=== PATIENT | male | born 1975 | race Caucasian/White ===

== ENCOUNTER 2018-01-04 18:40 | Emergency (ER) | payer OTHER ==
[2018-01-04 18:47] VITALS: BP 121/75
--- NOTE | 2018-01-04 19:19 | UC ---
Knee Pain HPI - HPI Summary HPI Summary: The patient is a 42-year-old male that presents here for evaluation of worsening left knee pain and swelling. He had a serious injury to his left knee in the past. He states that he had a patellar fracture and repair of a torn ACL. He states he has had chronic problems with his left knee. He states that he has had x-rays in the past that showed severe arthritis. He states that he was told by an orthopedist that at some point he would need a knee replacement. Today he was unable to work due to the discomfort. He states that it feels like his left knee will buckle at times and he is a large knee effusion which he states has not been an issue for him in the past. - History of Current Complaint Chief Complaint: UCLowerExtremity Stated Complaint: KNEE PAIN Time Seen by Provider: 01/04/18 19:09 Hx Obtained From: Patient Onset/Duration: Gradual Onset, Lasting Days Severity Initially: Mild Severity Currently: Severe Pain Intensity: 8 Character: Dull, Aching Aggravating Factor(s): Movement, Weight Bearing, Prolonged Standing Alleviating Factor(s): Rest Associated Signs And Symptoms: Positive: Swelling - Allergies/Home Medications Allergies/Adverse Reactions: Allergies Allergy/AdvReac Type Severity Reaction Status Date / Time No Known Allergies Allergy Verified 01/04/18 18:47 PMH/Surg Hx/FS Hx/Imm Hx Previously Healthy: Yes - Surgical History Surgical History: Yes Surgery Procedure, Year, and Place: BACK SURGERY- BENIGN TUMOR REMOVED-[facility] – [place]. LEFT KNEE SURGERY. SURGERY FOR HEAD INJURY-1987. FINGER SURGERY - Social History Alcohol Use: None Substance Use Type: None Smoking Status (MU): Current Every Day Smoker Type: Cigars Amount Used/How Often: 2-3 CIGARS/DAY Review of Systems Constitutional: Negative Skin: Negative Eyes: Negative ENT: Negative Respiratory: Negative Cardiovascular: Negative Gastrointestinal: Negative Genitourinary: Negative Motor: Negative Neurovascular: Negative Musculoskeletal: Arthralgia Neurological: Negative Psychological: Negative Is Patient Immunocompromised?: No All Other Systems Reviewed And Are Negative: Yes Physical Exam Triage Information Reviewed: Yes Appearance: Well-Appearing, No Pain Distress, Well-Nourished Vital Signs: Initial Vital Signs Temp 98.6 F 01/04/18 18:43 Pulse 56 01/04/18 18:43 Resp 16 01/04/18 18:43 BP 121/75 01/04/18 18:43 Pulse Ox 99 01/04/18 18:43 Vital Signs Reviewed: Yes Eyes: Positive: Conjunctiva Clear ENT: Positive: Hearing grossly normal. Negative: Nasal congestion, Nasal drainage, Trismus, Muffled voice, Dental tenderness, Sinus tenderness Neck: Positive: Supple, Nontender, No Lymphadenopathy Respiratory: Positive: Lungs clear, Normal breath sounds, No respiratory distress Cardiovascular: Positive: RRR, No Murmur Musculoskeletal: Positive: Edema @ - ++++ effusion left knee, tender medail joint line, Other: - antalgic gait, no overling warmth or redness left knee Neurological: Positive: Alert Skin Exam: Normal Diagnostics - Radiology No standard instances Xray Interpretation: Positive (See Comments) - DJD, effusion,? loose body Radiology Interpretation Completed By: ED Physician Knee Pain Course/Dx - Differential Dx/Diagnosis Provider Diagnoses: Swollen left knee. DJD. ? loose body Discharge - Sign-Out/Discharge Documenting (check all that apply): Patient Departure All imaging exams completed and their final reports reviewed: No - Discharge Plan Condition: Stable Disposition: HOME Patient Education Materials: Swollen Knee Joint (ED), Knee Immobilizer (ED) Forms: *Work Release Referrals: Earl Rico MD [Medical Doctor] - As Soon As Possible Giovanni Chisholm MD [Primary Care Provider] - Additional Instructions: I suggest you see an orthopedist You have severe arthritis You have a large effusion ("water on the knee") you may have a loose body (something floating in joint irritating it ice twice daily rest elevate aleve - Billing Disposition and Condition Condition: STABLE Disposition: Home
--- NOTE | 2018-01-05 07:52 | RAD ---
Indication: Left knee pain. 4 views of left knee are reviewed. There is joint space narrowing in the medial and lateral compartment as well as the patellofemoral joint with deformity of the patella from prior injury. No recent fracture is noted. No joint effusion is noted. Multiple loose bodies are likely joint space. IMPRESSION: Marked degenerative changes with heterotopic ossification. No acute injury or fracture is noted. R0
--- NOTE | 2018-01-05 08:10 | UC ---
- EKG/XRAY/CT XRAY: knee Xray Comments: wet read correct Discharge - Sign-Out/Discharge Documenting (check all that apply): Post-Discharge Follow Up All imaging exams completed and their final reports reviewed: Yes - Discharge Plan Condition: Stable Disposition: HOME Patient Education Materials: Swollen Knee Joint (ED), Knee Immobilizer (ED) Forms: *Work Release Referrals: Earl Rico MD [Medical Doctor] - As Soon As Possible Giovanni Chisholm MD [Primary Care Provider] - Additional Instructions: I suggest you see an orthopedist You have severe arthritis You have a large effusion ("water on the knee") you may have a loose body (something floating in joint irritating it ice twice daily rest elevate aleve - Billing Disposition and Condition Condition: STABLE Disposition: Home
== END 2018-01-04 19:59 | disposition home or self-care (01) ==
LOC: UCEAST 18:40
DX: M25.462 Effusion, left knee (principal); M17.12 Unilateral primary osteoarthritis, left knee; F17.290 Nicotine dependence, other tobacco product, uncomplicated
CPT/HCPCS: 99212; G0463

== ENCOUNTER 2022-05-31 10:01 | Observation (INO) ==
[~2022-05-31 10:01] MED LIST: Buffered Lidocaine 1% SYRIN 1 ml INTRADERM ONE; Lactated Ringers 1000 ml BAG 1,000 ML IV SCH
[2022-05-31] MEDS ORDERED: ceFAZolin 2 GM PREMIX 2 GM/50 ML BAG ONE (10:26)
[2022-05-31] MEDS ORDERED: ROPIVACAINE 5 MG/ML 30 ML BTL (0.5%) ONE ×2 (11:51→12:14)
[2022-05-31] MEDS ORDERED: Ropivacaine 5 MG/ML 20 ML VIAL 0.5% (100 MG) ONE (12:04)
[2022-05-31] MEDS ORDERED: Midazolam 2 mg/2 ml VIAL 1 mg/ml 2 ml VIAL (2 mg) ONE ×2 (12:14→12:47)
[2022-05-31] MEDS ORDERED: fentaNYL 100 mcg/2 ml 50 MCG/ML VIAL ONE ×2 (12:14→16:43)
[2022-05-31] MEDS ORDERED: fentaNYL 100 mcg/2 ml 50 MCG/ML VIAL IV PRN (13:38)
[2022-05-31] MEDS ORDERED: Naloxone 0.4 mg VIAL 0.4 mg/ml 1 ml VIAL IV PRN (13:38)
[2022-05-31] MEDS ORDERED: Ondansetron 4 mg VIAL 2 MG/ML 2 ml VIAL IV PRN ×2 (13:38→13:57)
[2022-05-31] MEDS ORDERED: Morphine 2 MG/ML SYRINGE IV PRN (13:57)
[2022-05-31] MEDS ORDERED: Lactulose 30 ml UDC PO PRN (13:57)
[2022-05-31] MEDS ORDERED: Ondansetron ODT 4 mg TAB 4 MG TAB PO PRN (13:57)
[2022-05-31] MEDS ORDERED: Magnesium Hydroxide LIQ 30 ML UDC PO PRN (13:57)
[2022-05-31] MEDS ORDERED: Propofol 10 MG/ML 20 ML BTL ONE ×2 (14:12→15:19)
[2022-05-31] MEDS: Lactated Ringers 1000 ml BAG 1,000 ML IV SCH (18:29)
[2022-05-31] MEDS: Magnesium Hydroxide LIQ 30 ML UDC PO SCH (21:32)
[2022-05-31] MEDS: Morphine ER 30 mg TAB ** extended release PO SCH (21:32)
[2022-05-31] MEDS: ceFAZolin 1 GM ADVAN 1 GM in NS 0.9% 50 ML 50 ML IVPB SCH (21:34)
[2022-06-01] MEDS: ceFAZolin 1 GM ADVAN 1 GM in NS 0.9% 50 ML 50 ML IVPB SCH ×2 (05:07→12:06)
[2022-06-01] MEDS: Lactated Ringers 1000 ml BAG 1,000 ML IV SCH (06:07)
[2022-06-01 06:15] LABS: Hematocrit 36 % (42-52); Hemoglobin 12.1 g/dL (14.0-18.0); Mean Platelet Volume 8.7 fL (7.4-10.4); Platelet Count 245 10^3/uL (150-450)
[2022-06-01 06:45] LABS: Calcium 8.5 mg/dL (8.6-10.3); Creatinine, Serum 0.88 mg/dL (0.67-1.17); Potassium 4.1 mmol/L (3.5-5.0); eGFR CKD-EPI 108.1 (>60)
[2022-06-01] MEDS: Morphine ER 30 mg TAB ** extended release PO SCH (07:46)
[2022-06-01] MEDS: Magnesium Hydroxide LIQ 30 ML UDC PO SCH (07:46)
[2022-06-01] MEDS ORDERED: Vitamin THERAPEUTIC TAB PO SCH (09:00)
[2022-06-01 11:21] VITALS: BP 113/67
== END 2022-06-01 12:34 | disposition home or self-care (01) ==
LOC: OR 10:01 → SSU 10:01 → EDSTATUS 13:15
PROVIDERS: ADMIT Orthopaedic Surgery Adult Reconstructive Orthopaedic Surgery; ATTEND Orthopaedic Surgery Adult Reconstructive Orthopaedic Surgery